=== PATIENT | female | born 1955 | race Caucasian/White ===

== ENCOUNTER 2017-06-20 07:11 | Emergency (ER) | payer MEDICARE ==
[~2017-06-20] VITALS: Ht 162.6 cm; Wt 118.2 kg
[~2017-06-20 07:11] MED LIST: APIX5TAB PO; ASPI-973 PO; CHOL400T30 PO; IBUP800T28 PO; LANS30CA14 PO; MONT10TA20 PO; OLME40TA3 PO; OXYC1TAB24 PO; VERA120T84 PO
--- NOTE | 2017-06-20 07:13 | ED.REPORT ---
HPI-General Illness Date of Service Jun 20, 2017 ED Provider: Dr. Maldonado Pt is a 62 year old female with a hx of afib and HTN presenting to the ED via EMS complaining of moderate palpitations and mild SOB onset when she woke up this morning at 0525 today. Associated symptoms include increased urinary frequency, and urinary urgency. Denies lightheadedness, nausea, vomiting, abdominal pain, fever, chills, vision changes, speech changes, bloody stool, headache, numbness, weakness, swelling, agitation, or back pain. Shortness of breath is only mild and is not/has not had SOB independent of her palpitations; she says she feels this every time she goes into afib. Symptoms were exacerbated by getting up to walk to the bathroom. Pt is normally in sinus rhythm, but has had 2 prior episodes of afib years ago, with one medication and one electrical cardioversion. These symptoms feel similar to her previous episodes of afib. Pt has had stable vitals in the field. Medics gave aspirin and nitro en route due to chest pain, which she later described as palpitations. Pt usually takes 3 baby Aspirin daily. Denies hx of CAD, DVT, PE. Nursing Notes Stated Complaint: A-FIB Chief Complaint: palpitations Nursing Notes Reviewed: Yes Allergies: Coded Allergies: iodine (Verified Allergy, Severe, ANAPHYLAXIS, 10/21/16) Contrast Media (Verified Allergy, Unknown, 10/16/16) adhesive tape (Verified Allergy, Unknown, 10/16/16) amlodipine (Verified Allergy, Unknown, 10/16/16) atenolol (Verified Allergy, Unknown, 10/16/16) carvedilol (Verified Allergy, Unknown, 10/16/16) hydrochlorothiazide (Verified Allergy, Unknown, 10/16/16) lanolin (Verified Allergy, Unknown, 10/16/16) Scheduled Apixaban (Eliquis) 5 Mg Tablet 5 MG PO BID Aspirin (Aspirin) 81 Mg Tablet 243 MG PO DAILY Cholecalciferol (Vitamin D3) (Vitamin D) 400 Unit Tablet 400 UNIT PO DAILY Lansoprazole DR (Prevacid) 30 Mg Capsule 30 MG PO BID Montelukast (Singulair) 10 Mg Tablet 10 MG PO HS Olmesartan (Benicar) 40 Mg Tablet 40 MG PO DAILY Verapamil ER (Verapamil ER) 120 Mg Tablet.er 120 MG PO DAILY Scheduled PRN Ibuprofen (Ibuprofen) 800 Mg Tablet 800 MG PO TID PRN PRN For Pain oxyCODONE-Acetaminophen 5-325 mg (oxyCODONE-Acetaminophen 5-325 mg) 1 Each Tablet 1 TAB PO Q4H PRN PRN For Pain General Time Seen by MD: 07:13 Chief Complaint Other (SOB) Hx Obtained From: Patient, EMS Arrived By: Ambulance Sudden in Onset?: Yes Onset Occurred: Just prior to arrival Symptom Duration: Since onset Severity: Current: No pain currently Severity: Maximum: No pain Recent Healthcare: No recent doctor visit, No recent hospitalization Similar Sx Previous: Yes Past Medical History Past Medical History Notes: Cardiology: Dr. Kruse Past Medical History ANABELA, noncompliant with CPAP hypertension Paroxysmal Atrial fibrillation, since 2008 Degenerative Joint Disease, OA on chronic opiate therapy GERD Reports: Atrial fibrillation Past Surgical History Bladder suspension Reports: Appendectomy, Cholecystectomy, Hysterectomy Family History Mother had CAD: [place] and stroke Sister with atrial fibrillation Son with HTN and atrial fibrillation Smoking History Never Smoker Social History Alcohol Use: Denies alcohol use Drug Use: Denies drug use Other Social History: Good social support, , Local resident Ambulatory Status Independent Review of Systems Full Review of Systems Constitutional: Denies: Chills, Fever, Weakness - generalized Eyes: Denies: Blurred bilateral, Visual loss bilateral Ears / Nose / Throat: Denies: Sore throat Respiratory: Reports: Shortness of breath Cardiovascular: Reports: Palpitations, Denies: Chest pain GI: Denies: Abdominal pain, Bloody/tarry stool, Nausea, Vomiting Female: Reports: Urinary frequency, Urinary urgency Musculoskeletal: Denies: Back pain Endocrine: Denies: Polydipsia Skin: Denies Rash, Denies Swelling Allergy / Immune: Denies: Itching Neurologic: Denies: Focal weakness, Headache, Lightheaded, Numbness, Slurred speech, Unable to speak, Vision change Psychiatric: Denies: Agitation Complete sys rev & neg: except as marked. Physical Exam Nursing note and vitals reviewed. Constitutional: Well-developed, well-nourished. Not diaphoretic. Head: Normocephalic and atraumatic. Mouth/Throat: Oropharynx is clear and moist. No oropharyngeal exudate. Eyes: EOM are normal. Pupils are equal, round, and reactive to light. Neck: Supple, no tracheal deviation. Cardiovascular: Tachycardic, irregular rhythm. Equal and intact distal pulses throughout. Pulmonary/Chest: Effort normal and breath sounds normal. No respiratory distress. Abdominal: Soft. No distension. There is no tenderness, rebound, or guarding. Bowel sounds present. Musculoskeletal: Range of motion grossly intact, moving all extremities. No edema or tenderness appreciated. Neurological: AOx3. Grossly nonfocal exam. Strength and sensation intact and equal to bilateral upper and lower extremities. Unremarkable gait. Skin: Warm and dry, no rashes or pallor appreciated. Psychiatric: Appropriate mood and affect. Behavior appears normal. Vital Signs Vital Signs Date Time Temp Pulse Resp B/P Pulse Ox O2 Delivery O2 Flow Rate FiO2 06/20/17 08:41 75 18 146/62 96 Room Air 06/20/17 08:00 104 16 156/68 96 Room Air 06/20/17 07:25 37.0 130 13 174/110 98 Room Air Initial VS: Reviewed, Vital signs abnormal Interpretation & Diagnostics Lab Results Interpretation Result Diagram: 06/20/17 0720 06/20/17 0720 Test 06/20/17 07:20 06/20/17 09:10 White Blood Count 7.1th/mm3 (3.8-10.1) Red Blood Count 4.44mil/mm3 (3.90-5.20) Hemoglobin 12.7g/dL (12.0-15.6) Hematocrit 38.1% (35.0-46.0) Mean Corpuscular Volume 85.8fL (81-100) Mean Corpuscular Hemoglobin 28.6pg (27.0-35.0) Mean Corpuscular Hemoglobin Concent 33.3% (32.0-37.0) Red Cell Distribution Width 13.7% (12.3-15.4) Platelet Count 342bil/L (150-400) Neutrophils (%) (Auto) 55.9% (40-74) Lymphocytes (%) (Auto) 25.6% (14-46) Monocytes (%) (Auto) 13.4% (4-12) Eosinophils (%) (Auto) 4.4% (0-5) Basophils (%) (Auto) 0.6% (0-3) Prothrombin Time 10.0sec (8.1-12.5) Prothromb Time International Ratio 0.94ratio Activated Partial Thromboplast Time 26.0sec (22.8-33.0) Sodium Level 136mEq/L (134-144) Potassium Level 3.3mEq/L (3.5-5.2) Chloride Level 101mEq/L (97-108) Carbon Dioxide Level 19mmol/L (18-29) Blood Urea Nitrogen 10mg/dL (8-27) Creatinine 0.54mg/dL (0.57-1.00) Estimat Glomerular Filtration Rate 163mL/min (>59) Glucose Level 168mg/dL (60-99) Calcium Level 9.1mg/dL (8.5-10.1) Magnesium Level 1.8mg/dL (1.6-2.6) Total Bilirubin 0.6mg/dL (0.0-1.2) Aspartate Amino Transf (AST/SGOT) 16U/L (0-50) Alanine Aminotransferase (ALT/SGPT) 13U/L (0-32) Alkaline Phosphatase 82U/L (25-165) Pro-B-Type Natriuretic Peptide 105.0pg/mL (0-287) Total Protein 7.7g/dL (6.4-8.4) Albumin 4.1g/dL (3.4-5.0) Hold [place] Top Tube Received (Received) Troponin T 0.010ug/L (0.0-0.011) ECG Interpretation ECG Interpretation: Afib with a rate of 113. 3 beat run of NSVT. ST depression in lateral leads. Time: 07:42 Interpreted by: ED physician ECG Interpretation: Q wave in v3 there previously along with inverted T wave. Time: 08:48 Normal ECG Interpretation: Normal rate (80), Normal sinus rhythm X-Ray Chest Interpretation Chest Xray Interpretation: IMPRESSION: Normal for age. Dictated by: Santy Parks M.D. on 06/20/2017 at 8:14 View: Portable, 1 view Interpretation / Wet Read by: Interpret - Radiologist Re-Eval/Medical Decision Med Decision/Clinical Course In summary, 62-year-old female with a complex past medical history including atrial fibrillation not currently on anticoagulation presenting to the ED for evaluation of palpitations. Differential includes SVT, atrial fibrillation with RVR, other tachydysrhythmia, PE, ACS, etc. She is not complaining of any chest pain and has no dyspnea independent of her palpitations; states that it is exactly like her previous episodes of atrial fibrillation. Not having any pleuritic symptoms. Low risk by Well's criteria for PE. Laboratory studies demonstrate Potassium 3.3 (repleted). Creatinine 0.54 Glucose 168. Troponin negative x2. Pt was given potassium here in ED. INR 0.94. Original EKG shows Afib with a rate of 113. 3 beat run of NSVT. ST depression in lateral leads. Patient given diltiazem x 1 with conversion to NSR. Repeat EKG shows sinus rhythm rate of 80, Q wave in v3 there previously along with flattened T wave. Chest x ray was normal. Cardiology consulted; appreciate recommendations. Discussed anticoagulation with the patient, however she is adamant that her ibuprofen is sufficient. I discussed that she should continue taking her aspirin and that ibuprofen is not regarded as useful for anticoagulation or antiplatelet therapy, however she insisted that this was sufficient for her. I discussed anticoagulation, however patient would not like to start anything right now and would like to talk to her irrigationist on Thursday instead. I explained the risks of stroke with the patient, however she verbalized understanding and does not want any other treatment for this at this time. Upon reassessment, patient is denying any symptoms whatsoever, including no shortness of breath at all, no chest pain, no chest pressure, and would like to be discharged home. Given that she has the availability of close follow-up and is now symptom-free, this is reasonable. Very careful return precautions were discussed. Patient agreeable to the plan as stated, no further questions. Time of Eval: 10:15 Patient Status: Condition improved Re-Evaluation/Progress Note: Discussed and expressed concerns that she should be on anticoagulants. Pt declines. Discussed plan for discharge. Consultation #1: Referral / Consult Name: Domo Bullock MD Consulted With: Cardiology Call Returned at: 08:49 Note: Dr. Bullock will look at the EKG. Consultation #2: Referral / Consult Name: Domo Bullock MD Consulted With: Cardiology Call Returned at: 08:53 Note: EKG does not look acutely ischemic. Consultation #3: Referral / Consult Name: Domo Bullock MD Consulted With: Cardiology Call Returned at: 10:18 Esl Instructor: Agrees with plan Note: Pt should at least be on low dose Aspirin and likely anticoagluation depending on her discussion with Dr. Kruse. Counseled Regarding: Diagnosis, Lab results, Need for follow-up, When/why to return to ED Discharge & Departure Primary Impression: Atrial fibrillation with rapid ventricular response Disposition: Home Discharge Condition All VS Reviewed: Yes Condition: Improved Patient Instructions: A-fib (Atrial Fibrillation) (ED) Additional Instructions: Thank you for allowing us to be part of your care today. When you arrived in the emergency department, your heart was in a bad rhythm called atrial fibrillation with rapid ventricular response. After medication we gave you, your heart returned to its normal rhythm. I am glad you are now feeling better and are no longer having any symptoms. I do not think that ibuprofen is sufficient for medication for your atrial fibrillation at this time , and he should take at least one baby aspirin every day. We also discussed taking anticoagulation medicine such as warfarin, heparin, or Eloquis, but you have stated that you do not want to start these medicines at all until you speak with your irrigationist on Thursday. I understand, however, as discussed, you are putting yourself at increased risk for stroke. Please return to the ED any time if you change your mind and would like us to discuss this with you further. Please schedule a follow up appointment with your primary care physician tomorrow for a recheck. Please return to the emergency department for any new or worsening symptoms including any nausea, vomiting, abdominal pain, shortness of breath, chest pain , one sided weakness/numbness, fevers, or chills, or if there's anything else of concern to you. Referrals: OTHER,PHYSICIAN (PCP) Nichelle Kruse MD Attestation Portions of this note were transcribed by Helen Bacon. I, Dr. Maldonado personally performed the history, physical exam and medical decision-making; I reviewed and confirmed the accuracy of the information in the transcribed note. Signed by: Alva Lara, 06/20/2017. copies to: Nichelle Kruse MD, William B MD Jun 20, 2017 07:13 HELEN BACON Jun 20, 2017 07:21
[2017-06-20] MEDS ORDERED: 0.9% Sodium Chloride 1,000 ML IV ONE (07:21)
[2017-06-20 07:25] VITALS: BP 174/110; PULSE 130; RESP 13; O2SAT 98
[2017-06-20] MEDS ORDERED: Diltiazem 5 mg/mL 5 mL Inj IVPUSH ONE (07:25)
[2017-06-20 07:31] LABS: BASOPHILS % (AUTO) 0.6 % (0-3); EOSINOPHILS % (AUTO) 4.4 % (0-5); MONOCYTES % (AUTO) 13.4 % (4-12); Mean Corpuscular Hemoglobin 28.6 pg (27.0-35.0); Mean Corpuscular Volume 85.8 fL (81-100); NEUTROPHILS % (AUTO) 55.9 % (40-74); Platelet Count 342 bil/L (150-400)
[2017-06-20 07:51] LABS: INR 0.94 ratio
[2017-06-20 07:59] LABS: TROPONIN T 0.01 ug/L (0.0-0.011)
[2017-06-20 08:00] VITALS: BP 156/68; PULSE 104; RESP 16; O2SAT 96
[2017-06-20 08:10] LABS: Magnesium 1.8 mg/dL (1.6-2.6)
--- NOTE | 2017-06-20 08:15 | DRSVH ---
PROCEDURE: X-RAY CHEST ONE VIEW, PORTABLE ([id number]) INDICATIONS: afib TECHNIQUE: One view of the chest was acquired. COMPARISON: [facility], CR, XR CHEST 1VW (PORTABLE), 10/21/2016, 2:03. [facility], CR, XR CHEST 2VW, 01/14/2016, 17:17. FINDINGS: Surgical changes and devices: None. Lungs and pleura: No pleural effusions or pneumothorax. Lungs are clear. Mediastinum: Mediastinal contours appear normal. Heart size is normal. Bones and chest wall: No suspicious bony lesions. Overlying soft tissues appear unremarkable. IMPRESSION: Normal for age. Dictated by: Santy Parks M.D. on 06/20/2017 at 8:14 Approved by: Santy Parks M.D. on 06/20/2017 at 8:14
[2017-06-20 08:41] VITALS: BP 146/62; PULSE 75; RESP 18; O2SAT 96
[2017-06-20] MEDS ORDERED: Potassium Chloride 20 mEq SR Tablet PO ONE (10:30)
[2017-06-20 10:46] VITALS: BP 156/56; PULSE 68; RESP 13; O2SAT 98
[2017-06-20 11:15] VITALS: BP 156/56; PULSE 68; RESP 13; O2SAT 98
== END 2017-06-20 11:10 | disposition home or self-care (01) ==
LOC: SED 07:11
DX: I11.9 Hypertensive heart disease without heart failure (principal); I48.0 Paroxysmal atrial fibrillation; R35.0 Frequency of micturition; R39.15 Urgency of urination; K21.9 Gastro-esophageal reflux disease without esophagitis; Z90.49 Acquired absence of other specified parts of digestive tract; Z98.890 Other specified postprocedural states; Z79.82 Long term (current) use of aspirin; Z88.8 Allergy status to other drugs, medicaments and biological substances; Z91.041 Radiographic dye allergy status; Z91.048 Other nonmedicinal substance allergy status
CPT/HCPCS: 36415; 71010; 80053; 83735; 83880; 84484; 85025; 85610; 85730; 93005; 96361; 96374; 99285; J7030